=== PATIENT | female | born 1980 | race Caucasian/White ===

== ENCOUNTER 2017-01-24 16:19 | Emergency (ER) | payer OTHER | END 2017-01-24 18:20 | disposition home or self-care (01) | LOC: ED 16:19 | DX: R20.9 Unspecified disturbances of skin sensation (principal); J45.909 Unspecified asthma, uncomplicated; R00.2 Palpitations; I10 Essential (primary) hypertension; F17.210 Nicotine dependence, cigarettes, uncomplicated ==